=== PATIENT | male | born 1990 | race Caucasian/White ===

== ENCOUNTER 2023-06-18 17:56 | Emergency (ER) | payer SELFPAY ==
[2023-06-18] MEDS ORDERED: Sodium Chloride 0.9% 10 ML Syringe FLUSH PRN (18:28)
[2023-06-18] MEDS ORDERED: Lactated Ringers 1,000 ML IV ONE ×2 (18:30→19:36)
[2023-06-18] MEDS ORDERED: Ondansetron 4 MG/2 ML SDV IVPUSH ONE ×2 (18:30→23:37)
[2023-06-18 18:34] LABS: BASOPHILS ABSOLUTE AUTO 0.1 K/mm3 (0.0-0.2); BASOPHILS PERCENT AUTO 0.9 % (0.0-1.0); EOSINOPHILS ABSOLUTE AUTO 0.1 K/mm3 (0.0-0.4); EOSINOPHILS PERCENT AUTO 0.8 % (0.0-6.0); HEMATOCRIT 47.6 % (42.0-52.0); HEMOGLOBIN 16.8 gm/dl (14.0-18.0); IMMATURE GRAN ABSOLUTE AUTO 0.04 K/mm3 (0.00-0.05); IMMATURE GRAN PERCENT AUTO 0.4 % (0.0-0.4); LYMPHOCYTES ABSOLUTE AUTO 4.9 K/mm3 (1.0-4.8); LYMPHOCYTES PERCENT AUTO 46.8 % (24.0-44.0); MEAN CORPUSCULAR HEMOGLOBIN 31.3 pg (28.0-32.0); MEAN CORPUSCULAR HGB CONC 35.3 g/dl (32.0-36.0); MEAN CORPUSCULAR VOLUME 88.8 fl (83.0-99.0); MEAN PLATELET VOLUME 8.7 fl (9.4-12.4); MONOCYTES ABSOLUTE AUTO 0.7 K/mm3 (0.0-0.8); MONOCYTES PERCENT AUTO 6.8 % (0.0-8.0); NEUTROPHILS ABSOLUTE AUTO 4.6 K/mm3 (1.8-7.7); NEUTROPHILS PERCENT AUTO 44.3 % (41.0-71.0); PLATELET COUNT,PLT 326 K/mm3 (150-400); RED BLOOD CELL COUNT 5.36 M/mm3 (4.52-5.90); WHITE BLOOD CELL COUNT,WBC 10.37 K/mm3 (3.9-11.3)
[2023-06-18 18:36] LABS: APPEARANCE,URINE CLEAR (Clear); BILIRUBIN,URINE NEGATIVE (Negative); COLOR,URINE YELLOW (Yellow); GLUCOSE,URINE NEGATIVE (Negative); KETONES,URINE 4+ (Negative); LEUKOCYTE ESTERASE,URINE NEGATIVE (Negative); NITRITE,URINE NEGATIVE (Negative); OCCULT BLOOD,URINE TRACE-LYSED (Negative); PH,URINE 5.5 (5.0-8.0); PROTEIN,URINE 2+ (Negative); UROBILINOGEN,URINE 0.2 (0.2-1.0)
[2023-06-18 18:46] LABS: A/G RATIO 1.1 (1-2); ALBUMIN 4.7 g/dl (3.4-5.0); ANION GAP 29.9 (5-15); BUN/CREATININE RATIO 13.3 (14-18); CALCIUM 9.3 mg/dL (8.5-10.1); CREATININE 0.9 mg/dL (0.7-1.3); EST CRCL DRUG DOSING (CG) 133.17 mL/min; MAGNESIUM 1.8 mg/dL (1.8-2.4); POTASSIUM,K 3.9 mEq/L (3.5-5.1); PROTEIN TOTAL,TP 9.1 g/dl (6.4-8.2)
[2023-06-18 18:54] LABS: BASE EXCESS VENOUS -7.4 (-4.0-2.0); O2 SATURATION VENOUS 94.8; PCO2 VENOUS 28.2 mmHg (41-51); PH,VENOUS 7.37 (7.30-7.40)
[2023-06-18 19:07] LABS: BACTERIA,URINE FEW /hpf (FEW); MUCUS,URINE MANY /hpf (FEW); RBC,URINE 0-5 /hpf (0-5); SQUAMOUS EPITHELIAL CELLS,UR 0-5 /hpf (0-5); WBC,URINE 0-5 /hpf (0-5)
[2023-06-18] MEDS ORDERED: Naloxone 0.4 MG/ML SDV IVPUSH PRN (19:10)
[2023-06-18] MEDS ORDERED: HYDROmorphone 1 MG/ML Syringe IVPUSH ONE (19:10)
[2023-06-18] MEDS ORDERED: Dextrose 5%-0.9% NaCl 1,000 ML IV SCH (19:15)
[2023-06-18] MEDS ORDERED: Prochlorperazine 10 MG in Sodium Chloride 0.9% 50 ML IV ONE (19:17)
[2023-06-18] MEDS ORDERED: Morphine 4 MG/ML Syringe IVPUSH ONE ×2 (20:53→23:46)
[2023-06-19] MEDS ORDERED: HYDROmorphone 0.5 MG/0.5 ML Syringe IVPUSH ONE (00:02)
[2023-06-19] MEDS ORDERED: Insulin Regular, Human 100 Units/ML 3 ML Vial SUBCUT ONE (00:47)
== END 2023-06-19 01:35 | disposition home or self-care (01) ==
LOC: JD.ED 17:56
DX: R10.84 Generalized abdominal pain (principal); R10.12 Left upper quadrant pain; R10.32 Left lower quadrant pain; E87.20 Acidosis, unspecified
CPT/HCPCS: 36415; 80053; 81001; 82803; 82947; 83605; 83735; 85025; 96361; 96365; 96375; 96376; 99284; J0780; J1170; J1815; J2270; J2405; J3490; J7042; J7120

== ENCOUNTER 2023-06-19 09:12 | Emergency (ER) | payer SELFPAY ==
[2023-06-19] MEDS ORDERED: Ketorolac 30 MG/ML SDV IVPUSH ONE (10:03)
[2023-06-19] MEDS: Sodium Chloride 0.9% 10 ML Syringe FLUSH PRN ×2 (10:33→10:58)
[2023-06-19] MEDS ORDERED: Iopamidol 612 MG/ML 100 ML Bottle IVPUSH ONE (10:38)
[2023-06-19] MEDS ORDERED: Sodium Chloride 0.9% 10 ML Syringe FLUSH ONE (10:38)
== END 2023-06-19 11:50 | disposition home or self-care (01) ==
LOC: JD.ED 09:12
DX: K76.0 Fatty (change of) liver, not elsewhere classified (principal); F10.19 Alcohol abuse with unspecified alcohol-induced disorder; Z76.5 Malingerer [conscious simulation]; E11.9 Type 2 diabetes mellitus without complications
CPT/HCPCS: 36415; 74177; 82947; 83605; 96374; 99284; J1885; J3490; Q9967